=== PATIENT | female | born 1975 | race Caucasian/White ===

== ENCOUNTER 2021-01-25 09:00 | Outpatient (RCR) | payer OTHER | END 2021-01-28 | disposition home or self-care (01) | LOC: WSC | DX: S06.0X0A Concussion without loss of consciousness, initial encounter (principal) ==

== ENCOUNTER 2021-02-08 12:15 | Outpatient (RCR) | payer OTHER | END 2021-02-09 11:12 | disposition home or self-care (01) | LOC: WSST 12:15 | DX: R41.841 Cognitive communication deficit (principal) ==

== ENCOUNTER → 2022-08-28 | Outpatient (CLI) | payer OTHER | LOC: COL.CARD 11:52 | DX: F07.81 Postconcussional syndrome (principal) ==

== ENCOUNTER → 2022-10-18 | Outpatient (CLI) | payer BC | LOC: COL.CARD 09:23 | DX: F07.81 Postconcussional syndrome (principal) ==